=== PATIENT | male | born 1965 | race Caucasian/White ===

== ENCOUNTER 2024-07-17 15:30 | Emergency (ER) | payer SELFPAY ==
[~2024-07-17] VITALS: Ht 180.3 cm; Wt 95.3 kg
[2024-07-17 15:58] VITALS: BP 141/80; PULSE 86; RESP 20; TEMP 98.2; O2SAT 98
[2024-07-17] MEDS ORDERED: ZOFRAN ONE (16:09)
[2024-07-17] MEDS ORDERED: NS 1000ML 1,000 ML ONE (16:09)
[2024-07-17] MEDS: NS 1000ML 1,000 ML IV STA (16:17)
[2024-07-17] MEDS: ZOFRAN IV STA (16:17)
[2024-07-17 16:23] LABS: HEMOGLOBIN 7.1 g/dL (13.9-16.3); MEAN CORP HGB 17.9 pg (26-34); MEAN CORP HGB CONCENTRATION 25.4 g/dL (33-36.5); MEAN CORP VOLUME 70.5 fL (78-100); RED BLOOD CELL 3.97 10^6/uL (4.50-5.90); RED CELL DISTRIBUTION WIDTH 20.8 % (11.5-14.5); WHITE BLOOD CELL 4.2 10^3/uL (4.5-11.0)
[2024-07-17 16:42] LABS: INR 0.9; PROTHROMBIN PROTIME 9.5 SEC (9.7-11.6)
[2024-07-17 16:56] VITALS: BP 124/68; PULSE 76; RESP 20; TEMP 98.2; O2SAT 98
[2024-07-17 17:01] LABS: TROPONIN I HIGH SENSITIVITY < 4 ng/L (0-75)
[2024-07-17] MEDS ORDERED: PHENERGAN ONE (17:09)
[2024-07-17 17:13] LABS: ALANINE AMINOTRANSFERASE(ML) 34 U/L (12-78); ALBUMIN(ML) 3.5 g/dL (3.4-5.0); ALBUMIN/GLOBULIN RATIO 0.777; ALKALINE PHOSPHATASE 88 U/L (50-136); ANION GAP 14.6; ASPARTATE AMINO TRANSFERASE 26 U/L (0-35); CALCIUM 9.1 mg/dL (8.4-10.5); CARBON DIOXIDE 22.8 mmol/L (20.0-32); CREATININE SERUM 1.23 mg/dL (0.59-1.40); EST GFR, NON-AA 59.8 (>/=60); GLUCOSE 102 mg/dL (74-106); POTASSIUM 4.4 mmol/L (3.6-5.2); SODIUM 136 mmol/L (132-145)
[2024-07-17] MEDS: PHENERGAN IV STA (17:15)
== END 2024-07-17 17:15 | disposition home or self-care (01) ==
LOC: ER 15:30
DX: D61.9 Aplastic anemia, unspecified (principal)
CPT/HCPCS: 99285; 96374; 71045; 96361; 96375; 80053; 85027; 36415; 84484; 83880; 85610; 85730; 86900; 93005; J7030; J2405; J2550

== ENCOUNTER 2024-07-23 14:19 | Inpatient (IN) | payer SELFPAY ==
[2024-07-23] VITALS (7 sets, daily range): BP systolic 118–149; BP diastolic 64–85; PULSE 69–84; RESP 18; TEMP 97.9–98.6; O2SAT 99–100
[~2024-07-23] VITALS: Ht 180.3 cm; Wt 89.4 kg
[2024-07-23 14:49] LABS: HEMATOCRIT(ML) 26.8 % (37.0-53.0); HEMOGLOBIN 6.8 g/dL (13.9-16.3); MEAN CORP HGB CONCENTRATION 25.4 g/dL (33-36.5); MEAN CORP VOLUME 70.9 fL (78-100); PLATELET COUNT 324 10^3/uL (150-400); RED BLOOD CELL 3.78 10^6/uL (4.50-5.90); RED CELL DISTRIBUTION WIDTH 20.2 % (11.5-14.5)
[2024-07-23 15:10] LABS: ANION GAP 13.2; BUN/CREATININE RATIO 9.73 (10.0-20.0); CALCIUM 8.8 mg/dL (8.4-10.5); CARBON DIOXIDE 22.5 mmol/L (20.0-32); CREATININE SERUM 1.13 mg/dL (0.59-1.40); POTASSIUM 4.7 mmol/L (3.6-5.2)
[2024-07-23 15:25] LABS: ANISOCYTOSIS 2+ (NEGATIVE); HYPOCHROMIA 1+ (NEGATIVE); OVALOCYTES 1+ (NEGATIVE); POIKILOCYTOSIS 1+ (NEGATIVE)
[2024-07-23] MEDS ORDERED: NS 250ML 250 ML ONE (17:03)
[2024-07-23] MEDS ORDERED: LISI10TA20 PO (17:50)
[2024-07-23] MEDS ORDERED: ACET1TAB63 PO (17:50)
[2024-07-23] MEDS ORDERED: LEVO150T6 PO (17:50)
[2024-07-23] MEDS ORDERED: LITH300T3 PO (17:50)
[2024-07-23] MEDS ORDERED: FLUO40CA9 PO (17:50)
[2024-07-23 22:53] LABS: BASOPHIL # 0.1 10^3/uL (0.0-0.1); BASOPHIL % 1.2 % (0.2-1.2); EOSINOPHIL # 0.2 10^3/uL (0.0-0.2); EOSINOPHIL % 4.2 % (0.0-5.0); HEMATOCRIT(ML) 26.8 % (37.0-53.0); HEMOGLOBIN 7.2 g/dL (13.9-16.3); LYMPHOCYTES # 0.62 10^3/uL1 (1.0-4.8); LYMPHOCYTES % 12.4 % (24.0-44.0); MEAN CORP HGB 19.7 pg (26-34); MEAN CORP HGB CONCENTRATION 26.9 g/dL (33-36.5); MEAN CORP VOLUME 73.2 fL (78-100); MONOCYTES # 0.5 10^3/uL (0.3-0.8); MONOCYTES % 10.8 % (5.0-12.0); NEUTROPHIL # 3.6 10^3/uL (1.8-7.7); NEUTROPHILS % 71.2 % (41.0-85.0); PLATELET COUNT 267 10^3/uL (150-400); RED BLOOD CELL 3.66 10^6/uL (4.50-5.90); RED CELL DISTRIBUTION WIDTH 21.9 % (11.5-14.5)
[2024-07-23 22:54] LABS: +ADD MANUAL DIFF(NO CHRG) NO
[2024-07-23 22:56] LABS: ANISOCYTOSIS 2+ (NEGATIVE); HYPOCHROMIA 2+ (NEGATIVE)
[2024-07-24 00:14] VITALS: BP 143/74; PULSE 70; RESP 18; TEMP 98.6; O2SAT 96
[2024-07-24 03:27] VITALS: BP 147/79; PULSE 70; RESP 18; TEMP 97.1; O2SAT 96
[2024-07-24 08:06] VITALS: BP 135/86; PULSE 66; RESP 18; TEMP 97.9; O2SAT 95
[2024-07-24 11:59] VITALS: BP 122/62; PULSE 70; RESP 18; TEMP 97.8; O2SAT 96
[2024-07-24 12:48] VITALS: BP 122/62; PULSE 70; RESP 18; TEMP 97.8; O2SAT 96
== END 2024-07-24 12:48 | disposition home health service (06) | DRG 812 ==
LOC: ER 14:19 → OBS 16:03 → OBSVTOIN 16:03 → MS 16:04
PROVIDERS: ADMIT Student in an Organized Health Care Education/Training Program; ATTEND Student in an Organized Health Care Education/Training Program
PROC: 30233N1 Transfusion of Nonautologous Red Blood Cells into Peripheral Vein, Percutaneous Approach (ICD-10-PCS; principal; 2024-07-23)
DX: D50.9 Iron deficiency anemia, unspecified (principal); F31.30 Bipolar disorder, current episode depressed, mild or moderate severity, unspecified; D63.8 Anemia in other chronic diseases classified elsewhere; E03.9 Hypothyroidism, unspecified; I10 Essential (primary) hypertension; Z79.899 Other long term (current) drug therapy
CPT/HCPCS: 36415; 36430; 71045; 80048; 84484; 85025; 85027; 86885; 86900; 86901; 86923; 93005; 99291; G0378; J7050; P9016